=== PATIENT | male | born 1965 | race Caucasian/White ===

== ENCOUNTER 2018-09-20 10:02 | Emergency (ER) | payer BC ==
[2018-09-20 10:14] VITALS: BP 118/72; PULSE 81; TEMP 98; BMI 28.0
--- NOTE | 2018-09-20 10:41 | PDOC ---
Attending Attestation - Resident Resident Name: Sa Jackieira - ED Attending Attestation I have performed the following: I have examined & evaluated the patient, The case was reviewed & discussed with the resident, I agree w/resident's findings & plan, Exceptions are as noted - HPI HPI: 09/20/18 11:50 52 yo M recently diagnosed with HTN and pre diabetes He presents to the ER with intermittent sharp chest pains with is associated with pain in his neck Pain not necessarily associated with exertion No fevers, chills, cough Pt had similar symptoms in the past, worked up by Dr Hoang Stress test last year, reportedly negative, no prior cardiac cath PMH - HTN, Pre diabetes 09/20/18 13:36 - Physicial Exam PE: 09/20/18 11:50 GENERAL: The patient is in no acute distress. ENT: Ears normal, nares patent, oropharynx clear without exudates. Moist mucous membranes. No tonsillar enlargement, no exudates NECK: Normal range of motion, supple, no nuchal rigidity LUNGS: Breath sounds equal, clear to auscultation bilaterally. No wheezes, and no crackles. HEART:Regular rate and rhythm, normal S1 and S2 without murmur, rub or gallop. ABDOMEN: Soft, nontender, normoactive bowel sounds. EXTREMITIES: Normal range of motion, no edema. NEUROLOGICAL: Cranial nerves II through XII grossly intact. Normal speech. No focal neurological deficits. SKIN: Warm, Dry, normal turgor, no rashes or lesions noted. - Medical Decision Making 09/20/18 10:41 52 yo M presenting with a complaint of chest pain, sharp and intermittent Symptoms have been present for the past 3 days Non exertional Cardiac work up last year negative Unlikely pneumonia, no PE risk factors (no recent travel, cancer, immobilization ) EKG - Twelve-lead EKG was performed and reviewed by me. There is normal sinus rhythm with a normal rate. The axis is normal. The intervals are normal. There are no ST or T wave abnormalities. Impression: Normal twelve-lead EKG 09/20/18 11:51 Laboratory Tests 09/20/18 09/20/18 10:45 11:16 WBC 4.2 Hgb 15.5 Hct 47.8 Plt Count 189 D INR 1.08 Laboratory Tests 09/20/18 09/20/18 09/20/18 10:45 11:16 12:35 INR 1.08 BUN 11 Creatinine 0.8 Creatine Kinase 130 Troponin I < 0.02 Urine Blood Negative Urine Nitrite Negative Ur Leukocyte Esterase Negative 09/20/18 13:[address] ferraro He recommends repeat troponin and discharge Follow up as an outpatient 09/20/18 13:57
[2018-09-20 11:25] LABS: BASO % 0.4 % (0-2.0); EOS % 1.7 % (0-4.5); HEMATOCRIT 47.8 % (35.4-49); HEMOGLOBIN 15.5 GM/dL (11.7-16.9); LYMPH % 22.1 % (8-40); MCH 27.5 pg (25.7-33.7); MCHC 32.4 g/dl (32.0-35.9); MEAN CELL VOLUME 84.9 fl (80-96); MEAN PLT VOLUME 8.3 fl (7.5-11.1); MONO % 9.7 % (3.8-10.2); NEUT % 66.1 % (42.8-82.8); PLATELET COUNT 189 K/MM3 (134-434); RBC 5.63 M/mm3 (4.00-5.60); RDW 13.5 % (11.9-15.9); WHITE BLOOD COUNT 4.2 K/mm3 (4.0-10.0)
[2018-09-20 11:37] LABS: INR 1.08 (0.83-1.09); PROTHROMBIN TIME (PATIENT) 12.7 SEC (9.7-13.0)
[2018-09-20 11:40] LABS: ACTIVATED PTT 39.9 SECONDS (25.2-36.5)
[2018-09-20 12:11] LABS: ALK PHOS 64 U/L (45-117); ANION GAP 6 MMOL/L (8-16); BILIRUBIN,TOTAL 0.8 mg/dL (0.2-1); BLOOD UREA NITROGEN 11 mg/dL (7-18); CHLORIDE 105 mmol/L (98-107); CO2 26 mmol/L (21-32); CREATININE 0.8 mg/dL (0.55-1.3); GLUCOSE,RANDOM 81 mg/dL (74-106); MAGNESIUM 2.4 mg/dL (1.8-2.4); POTASSIUM 4.9 mmol/L (3.5-5.1); SGOT/AST 31 U/L (15-37); SGPT/ALT 37 U/L (13-61); SODIUM 137 mmol/L (136-145); TOT PROT 7.7 g/dl (6.4-8.2)
[2018-09-20 12:51] LABS: PH,URINE 5.5 (5.0-8.0); URINE APPEARANCE CLEAR; URINE BILIRUBIN NEGATIVE (NEGATIVE); URINE COLOR YELLOW; URINE GLUCOSE (UA) NEGATIVE (NEGATIVE); URINE KETONE TRACE (NEGATIVE); URINE LEUK ESTERASE NEGATIVE (NEGATIVE); URINE NITRITE NEGATIVE (NEGATIVE); URINE PROTEIN NEGATIVE (NEGATIVE); URINE UROBILINOGEN 0.2 mg/dL (0.2-1.0)
--- NOTE | 2018-09-20 14:10 | PDOC ---
History of Present Illness - General Chief Complaint: Chest Pain Stated Complaint: CHEST PAIN Time Seen by Provider: 09/20/18 10:15 History Source: Patient Exam Limitations: No Limitations - History of Present Illness Initial Comments: 09/20/18 19:30 Pt is a 52yo M with PMH of HTN recently diagnosed presenting to ED with L sided chest pain for the past few days. Pt says pain is sharp, brief, intermittent and occurs sporadically. Associated with a pulsatile sensation in the neck. He has had pains like this before. He had a stress test last year which was normal. He states that since then he has not been as active and has not been eating well. Diagnosed with prediabetes and htn this year. Denies sob, pleuritic cp, surgeries, travel, leg swelling, cough, fevers, chills, pain radiating ot back or neck, headache, changes in vision. PMD: Taty Cards: Natalya PMH: see hpi PSH: Meds: losartan Allergies: Nkda Social: denies Past History - Past Medical History Allergies/Adverse Reactions: Allergies Allergy/AdvReac Type Severity Reaction Status Date / Time No Known Allergies Allergy Verified 09/20/18 10:14 Home Medications: Ambulatory Orders Losartan Potassium [Cozaar -] 25 mg PO DAILY 09/20/18 COPD: No Disorders: Yes (enlarged prostate) - Surgical History Abdominal Surgery: Yes (left inguinal hernia repair) - Family Disease History Family Disease History: Other: Mother (colon cancer in her 40s) - Immunization History Immunization Up to Date: Yes - Suicide/Smoking/Psychosocial Hx Smoking Status: Yes Smoking History: Former smoker Have you smoked in the past 12 months: No Number of Cigarettes Smoked Daily: 0 Information on smoking cessation initiated: No Hx Alcohol Use: No Drug/Substance Use Hx: No Review of Systems - Review of Systems Constitutional: No: Chills, Fever, Weakness HEENTM: No: Symptoms Reported Respiratory: No: Symptoms reported Cardiac (ROS): Yes: See HPI ABD/GI: No: Symptoms Reported : No: Symptoms Reported Musculoskeletal: No: Symptoms Reported Integumentary: No: Symptoms Reported Neurological: No: Symptoms reported *Physical Exam - Vital Signs Last Vital Signs Temp Pulse Resp BP Pulse Ox 98 F 81 16 118/72 09/20/18 10:08 09/20/18 10:08 09/20/18 10:08 09/20/18 10:08 - Physical Exam General Appearance: Yes: Nourished, Appropriately Dressed. No: Apparent Distress HEENT: positive: EOMI, JULI, Normal ENT Inspection Neck: positive: Trachea midline, Supple. negative: Lymphadenopathy (R), Lymphadenopathy (L) Respiratory/Chest: positive: Lungs Clear, Normal Breath Sounds Cardiovascular: positive: Regular Rhythm, Regular Rate, S1, S2. negative: Edema , JVD, Murmur Vascular Pulses: Carotid (R): 2+, Carotid (L): 2+, Dorsalis-Pedis (R): 2+, Doralis-Pedis (L): 2+ Gastrointestinal/Abdominal: positive: Normal Bowel Sounds, Soft. negative: Tender Musculoskeletal: negative: CVA Tenderness Extremity: positive: Normal Capillary Refill, Normal Inspection. negative: Swelling, Calf Tenderness Integumentary: positive: Normal Color, Dry, Warm Neurologic: positive: central melt specialist II-XII NML intact, Fully Oriented, Alert, Normal Mood/ Affect, Normal Response, Motor Strength 10/26 ED Treatment Course - LABORATORY CBC & Chemistry Diagram: 09/20/18 10:45 09/20/18 10:45 - ADDITIONAL ORDERS Additional order review: Laboratory Results 09/20/18 09/20/18 09/20/18 12:35 11:16 10:45 PT with INR 12.70 INR 1.08 PTT (Actin FS) 39.9 H Sodium 137 Potassium 4.9 Chloride 105 Carbon Dioxide 26 Anion Gap 6 L BUN 11 Creatinine 0.8 Creat Clearance w eGFR 102.32 Random Glucose 81 Calcium 9.0 Magnesium 2.4 Total Bilirubin 0.8 AST 31 ALT 37 Alkaline Phosphatase 64 Creatine Kinase 130 Troponin I < 0.02 Total Protein 7.7 Albumin 4.0 Urine Color Yellow Urine Appearance Clear Urine pH 5.5 Ur Specific [place] 1.013 Urine Protein Negative Urine Glucose (UA) Negative Urine Ketones Trace H Urine Blood Negative Urine Nitrite Negative Urine Bilirubin Negative Urine Urobilinogen 0.2 Ur Leukocyte Esterase Negative 09/20/18 10:45 RBC 5.63 H MCV 84.9 MCHC 32.4 RDW 13.5 MPV 8.3 Neutrophils % 66.1 D Lymphocytes % 22.1 D Monocytes % 9.7 Eosinophils % 1.7 Basophils % 0.4 - RADIOLOGY Radiology Studies Ordered: Category Date Time Status CHEST PA & LAT [RAD] Stat Radiology 09/20/18 10:37 Completed Medical Decision Making - Medical Decision Making 09/20/18 19:33 Pt is a 52yo M with PMH of HTN recently diagnosed presenting to ED with L sided chest pain for the past few days. Pt says pain is sharp, brief, intermittent and occurs sporadically. Associated with a pulsatile sensation in the neck. He has had pains like this before. He had a stress test last year which was normal. He states that since then he has not been as active and has not been eating well. Diagnosed with prediabetes and htn this year. Denies sob, pleuritic cp, surgeries, travel, leg swelling, cough, fevers, chills, pain radiating ot back or neck, headache, changes in vision. vitals: wnl PE: benign ddx includes but not limted to acs, ptx, pe, dissection -labs, trop -ekg, cxr ekg: nsr, no nella or depressions cxr: no acute pathology labs: wnl. negative trop Called Dr. Hoang's office, spoke to Dr. Woodard, pt can get 2nd trop and if negative dc home with f/u in office. 2nd trop negative. pt has fu and is stable. dc home. given return precautions *DC/Admit/Observation/Transfer Diagnosis at time of Disposition: Chest pain Qualifiers: Chest pain type: unspecified Qualified Code(s): R07.9 - Chest pain, unspecified - Discharge Dispostion Disposition: HOME Condition at time of disposition: Good Decision to Admit order: No - Referrals Referrals: Ramón Posey [Primary Care Provider] - Ulices Hoang MD [Staff Physician] - - Patient Instructions Printed Discharge Instructions: DI for Atypical Chest Pain Additional Instructions: You were seen in the emergency room today for chest pain. The blood tests and EKG were normal. 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 You can take Tylenol or Aspirin for the pain if needed. Come back to the emergency room if pain gets worse, you have difficulty breathing, you pass out or if any new concerning symptom develops. Thank you - Post Discharge Activity
[2018-09-20] MEDS ORDERED: KETOROLAC TROMETHAMINE 15 MG/ML VIAL ONE (15:40)
--- NOTE | 2018-09-22 10:23 | EKG ---
Test Reason : Blood Pressure : / mmHG Vent. Rate : 081 BPM Atrial Rate : 081 BPM P-R Int : 156 ms QRS Dur : 078 ms QT Int : 370 ms P-R-T Axes : 045 019 037 degrees QTc Int : 429 ms NORMAL SINUS RHYTHM NORMAL ECG WHEN COMPARED WITH ECG OF 21-JUN-2016 23:13, NO SIGNIFICANT CHANGE WAS FOUND Confirmed by NOMI VALDES MD ([id number]) on 09/22/2018 10:23:07 AM Referred By: Confirmed By:NOMI VALDES MD
== END 2018-09-20 14:34 | disposition home or self-care (01) ==
LOC: JER 10:02
DX: R07.9 Chest pain, unspecified (principal); I10 Essential (primary) hypertension; N40.0 Benign prostatic hyperplasia without lower urinary tract symptoms
CPT/HCPCS: 36415; 71046-TC-FY; 80053; 81003; 82550; 83735; 84484; 85025; 85610; 85730; 93005; 93010; 99284-25